=== PATIENT | male | born 1990 | race Hispanic/Latino ===

== ENCOUNTER 2025-02-11 15:18 | Emergency (ER) | payer SELFPAY ==
--- NOTE | ~2025-02-11 | XR_ITS ---
EXAMINATION: XR chest 1V portable DATE: 02/11/2025 22:06 INDICATION: Lightheadedness TECHNIQUE: frontal view of the chest was obtained. COMPARISON: None FINDINGS: The lungs are clear with no focal airspace opacities, pulmonary edema, pleural effusion or pneumothor ax. The cardiomediastinal silhouette is normal. Visualized bones and soft tissues are unremarkable. IMPRESSION: 1. No acute cardiopulmonary disease. Reviewed, dictated and finalized at location A.
[2025-02-11 15:20] VITALS: BP 118/75; PULSE 91; RESP 16; TEMP 36.4; O2SAT 99
--- NOTE | 2025-02-11 15:38 | ECG_ITS ---
Test Date: 2025-02-11 17:11:29 Measurements Intervals [place] Rate: 78 P: 37 NV: 158 QRS: 11 QRSD: 107 T: 9 QT: 371 QTc: 425 Interpretive Statements SINUS RHYTHM NONSPECIFIC ST & T-WAVE ABNORMALITY No previous ECG available for comparison Electronically Signed On 02-13-2025 15:33:19 CDT by Dilan Melton M.D.
--- NOTE | 2025-02-11 15:38 | ED.GENADULT ---
HPI - General Adult General Chief complaint: Environmental Exposure Stated complaint: heat exhaustion Time Seen by Provider: 02/11/25 15:30 Focused HPI: Patient is a 35-year-old male who presents to the ER with heat-related symptoms. He reports he was outside working on a roof all day. Patient reports he has been drinking water and Gatorade but when he got home he started experiencing significant dizziness and cramps. Patient denies any medical history relevant to this ER visit. He denies chest pain, shortness a breath, or urinary symptoms. GENERAL: Ill-appearing, well-nourished, and in acute distress d/t muscle cramps. HEAD: Normocephalic, atraumatic. CHEST: Clear to auscultation. ?No respiratory distress. HEART: Regular rate and rhythm.? NEURO: ?Alert and oriented x3. Patient screened in triage and initial orders placed.? ?Additional care and disposition to be based upon?diagnostic testing and treatment. Related Data Allergies Allergy/AdvReac Type Severity Reaction Status Date / Time No Known Allergies Allergy Verified 02/11/25 22:09 Course Vital Signs Vital signs: Vital Signs Temperature 36.4 C 02/11/25 15:20 Pulse Rate 91 02/11/25 15:20 Respiratory Rate 16 02/11/25 15:20 Blood Pressure 118/75 02/11/25 15:20 Pulse Oximetry 99 02/11/25 15:20 Oxygen Delivery Room Air 02/11/25 15:20 Temperature 36.3 C L 02/11/25 19:53 Pulse Rate 58 L 02/11/25 22:39 Respiratory Rate 20 02/11/25 19:53 Blood Pressure 108/73 02/11/25 19:53 Pulse Oximetry 100 02/11/25 19:53 Oxygen Delivery Room Air 02/11/25 15:20 Medical Decision Making Vital Signs Vital Signs: Vital Signs Temperature 36.4 C 02/11/25 15:20 Pulse Rate 91 02/11/25 15:20 Respiratory Rate 16 02/11/25 15:20 Blood Pressure 118/75 02/11/25 15:20 Pulse Oximetry 99 02/11/25 15:20 Oxygen Delivery Room Air 02/11/25 15:20 Temperature 36.3 C L 02/11/25 19:53 Pulse Rate 58 L 02/11/25 22:39 Respiratory Rate 20 02/11/25 19:53 Blood Pressure 108/73 02/11/25 19:53 Pulse Oximetry 100 02/11/25 19:53 Oxygen Delivery Room Air 02/11/25 15:20 Lab Data 02/11/25 17:14 02/12/25 00:05 Labs: Lab Results 02/11/25 02/11/25 02/12/25 Range/Units 17:14 22:50 00:05 WBC 10.1 H (4.5-10.0) K/mm3 RBC 5.22 (4.6-6.20) M/mm3 Hgb 15.7 (14.0-18.0) g/dL Hct 45.0 (42.0-52.0) % MCV 86.2 (80-100) fl MCH 30.1 (26-34) pg MCHC 34.9 (32-36) g/dl RDW 12.2 (11.5-14.5) % Plt Count 189 (150-375) k/mm3 MPV 11.1 H (7.4-10.4) fl Immature Gran % (Auto) 0.3 (0-0.5) % Neut % (Auto) 73.1 (45.5-73.1) % Lymph % (Auto) 15.6 L (18.3-44.2) % [place] % (Auto) 10.6 H (2.6-8.5) % Eos % (Auto) 0.1 (0-4.4) % Baso % (Auto) 0.3 (0.2-1.2) % Lymph # (Auto) 1.58 (0.9-3.2) K/mm3 [place] # (Auto) 1.1 H (0.1-0.6) K/mm3 Eos # (Auto) 0.0 (0-0.3) K/mm3 Baso # (Auto) 0.0 (0.0-0.1) K/mm3 Abs Immat Gran (auto) 0.03 (0.00-0.031) K/mm3 Absolute Neuts (auto) 7.4 H (1.3-6.7) K/mm3 Absolute Nucleated RBC 0.000 (0.0-0.012) K/mm3 Nucleated RBC % 0.0 (0.0-0.2) % Sodium 135 L 134 L (137-145) mmol/L Potassium 3.7 3.4 (3.4-5.0) mmol/L Chloride 97 L 98 (98-107) mmol/L Carbon Dioxide 24 28 (22-30) mmol/L Anion Gap 14 H 8 (4-12) mmol/L BUN 23 H 21 H (9-20) mg/dL Creatinine 1.46 H 1.02 (0.7-1.3) mg/dL Estim Creat Clear Calc Not Reportable Not Reportable Estimated GFR 54 L > 60 (59 - ) Glucose 99 95 (65-110) mg/dL Calcium 9.9 8.9 (8.4-10.2) mg/dL Magnesium 2.1 (1.6-2.3) mg/dL Total Bilirubin 1.0 (0.2-1.3) mg/dL AST 70 H (17-59) U/L ALT 103 H (6-50) U/L Alkaline Phosphatase 79 (38-126) U/L Total Creatine Kinase 264 H (55-170) U/L Troponin I < 0.012 (0.000-0.034) ng/mL Total Protein 9.2 H (6.3-8.2) g/dL Albumin 5.2 H (3.5-5.1) g/dL Urine Color Dark yellow (Yellow) Urine Appearance Cloudy H (Clear) Urine pH 5.0 (5.0-9.0) Ur Specific [place] 1.033 (1.001-1.035) Urine Protein 1+ H (Negative) mg/dL Urine Glucose (UA) Negative (Negative) mg/dL Urine Ketones Trace H (Negative) mg/dL Ur Blood (Man) Negative (Negative) Urine Nitrate Negative (Negative) Urine Bilirubin 2+ H (Negative) Urine Urobilinogen 1.0 (<2.0) mg/dL Add Ur Microanalysis Reviewed Leukocyte Esterase Rfl Trace H (Negative) VIK/UL Urine RBC 0-2 (0-2) /hpf Urine WBC 21-50 H (0-3) /hpf Ur Squamous Epith Cells Occasional (Few) /hpf Urine Bacteria Rare /hpf Urine Casts >20 Hyaline Casts Present (None) /lpf Urine Mucus Present /lpf C. trachomatis (PCR) Not detected (NOT DETECTE) N. gonorrhoeae (PCR) Not detected (NOT DETECTE) T. vaginalis (PCR) Not detected (NOT DETECTE) Discharge Plan Discharge Clinical Impression: Dehydration, CHONG (acute kidney injury), Abnormal urinalysis Patient Disposition: Home Condition: Stable Instructions: Antibiotic Form, Dehydration (DC), Heat Exhaustion (ED) Additional Instructions: Please make sure to drink plenty of fluids including water, Gatorade and Pedialyte. Follow-up closely with PCP I referred you to. Return to the emergency department if you develop a fever, you are unable to keep down food or fluids, or other concerning symptoms. Patient Language: Syriac Prescriptions: New ondansetron 4 mg tablet,disintegrating 4 mg PO Q8H Qty: 14 0RF Follow-up/Referrals: PHYSICIAN NOT ON STAFF,NONSTAFF [Primary Care Provider] - Lawrence Rollins MD [Physician] -
[2025-02-11 17:25] LABS: Hematocrit 45.0 % (42.0-52.0); Hemoglobin 15.7 g/dL (14.0-18.0); Immature Granulocyte Percent A 0.3 % (0-0.5); Lymphocytes Absolute Auto 1.58 K/mm3 (0.9-3.2); Mean Corpuscular HGB Conc 34.9 g/dl (32-36); Mean Corpuscular Hemoglobin 30.1 pg (26-34); Mean Corpuscular Volume 86.2 fl (80-100); Nucleated Red Blood Cells Absolute Auto 0.000 K/mm3 (0.0-0.012); Nucleated Red Blood Cells Perc 0.0 % (0.0-0.2); Platelet Count Result 189 k/mm3 (150-375); Red Blood Count 5.22 M/mm3 (4.6-6.20); White Blood Count 10.1 K/mm3 (4.5-10.0)
[2025-02-11 17:45] LABS: Alanine Aminotransferase 103 U/L (6-50); Albumin Level 5.2 g/dL (3.5-5.1); Alkaline Phosphatase 79 U/L (38-126); Anion Gap 14 mmol/L (4-12); Aspartate Amino Transferase 70 U/L (17-59); Bilirubin,Total 1.0 mg/dL (0.2-1.3); Blood Urea Nitrogen 23 mg/dL (9-20); Calcium 9.9 mg/dL (8.4-10.2); Carbon Dioxide 24 mmol/L (22-30); Chloride 97 mmol/L (98-107); Creatine Kinase 264 U/L (55-170); Estimated Glomerular Filt Rate 54; Glucose 99 mg/dL (65-110); Magnesium 2.1 mg/dL (1.6-2.3); Potassium 3.7 mmol/L (3.4-5.0); Sodium 135 mmol/L (137-145); Total Protein 9.2 g/dL (6.3-8.2)
[2025-02-11 19:53] VITALS: BP 108/73; PULSE 77; RESP 20; TEMP 36.3; O2SAT 100
--- NOTE | 2025-02-11 21:59 | ED_ITS ---
HPI - General Adult General Chief complaint: Environmental Exposure Stated complaint: heat exhaustion Time Seen by Provider: 02/11/25 15:30 History of Present Illness HPI narrative: 35-year-old male with no reported past medical history presents to the ED with concerns for dehydration and lightheadedness. 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 He states he drank water, Gatorade and apple juice today but has only urinated 1 time. He is concerned he is dehydrated. He endorses nausea but no vomiting. Also reporting muscle cramps. Denies chest pain, abdominal pain, cough or congestion, fever. Related Data Allergies Allergy/AdvReac Type Severity Reaction Status Date / Time No Known Allergies Allergy Verified 02/11/25 22:09 Review of Systems 2 Review of Systems: All systems reviewed & are unremarkable except as noted in HPI and below Exam 2 Narrative: GENERAL: Well-appearing, well-nourished, and in no acute distress. HEAD: Normocephalic, atraumatic. EYES: EOMI. ENT: Nares clear, no rhinorrhea or epistaxis. Mucous membranes moist. NECK: Supple. CHEST: Clear to auscultation. No respiratory distress. HEART: Regular rate and rhythm. No murmur heard. Normal peripheral pulses. ABDOMEN: Soft, nontender, nondistended, normal active bowel sounds. EXTREMITIES: Normal range of motion. No edema. SKIN: Warm, dry, no rash. NEURO: No focal deficits. Alert and oriented x3 Course Vital Signs Vital signs: Vital Signs Temperature 97.6 F 02/11/25 15:20 Pulse Rate 91 02/11/25 15:20 Respiratory Rate 16 02/11/25 15:20 Blood Pressure 118/75 02/11/25 15:20 Pulse Oximetry 99 02/11/25 15:20 Oxygen Delivery Room Air 02/11/25 15:20 Temperature 97.3 F L 02/11/25 19:53 Pulse Rate 58 L 02/11/25 22:39 Respiratory Rate 20 02/11/25 19:53 Blood Pressure 108/73 02/11/25 19:53 Pulse Oximetry 100 02/11/25 19:53 Oxygen Delivery Room Air 02/11/25 15:20 Medical Decision Making [facility] Narrative Medical decision making narrative: 35-year-old male with no reported past medical history presents to the emergency department for lightheadedness and dehydration 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 Triage vitals are stable. Patient is afebrile and nontoxic appearing. Exam is notable for the above. Lab work with mild leukocytosis of 10.1. Chemistries remarkable for hypochloremia of 97, BUN of 23 and CHONG with a creatinine of 1.46. CK mildly elevated at 264. Magnesium is normal at 2.1. Chest x-ray shows no acute cardiopulmonary disease. Troponin is undetectable. EKG showed normal sinus rhythm with rate of 78 bpm, normal SC interval, normal QRS duration, normal QTC, incomplete right bundle-branch block, nonspecific ST and T-wave abnormalities, no ST elevations or depressions. Urinalysis with trace ketonuria, trace leuk esterase and 21-50 white blood cells, greater than 20 casts and hyaline casts which may be due to dehydration. Patient denies signs or symptoms of UTI, concern for STIs, penile discharge or scrotal/testicular pain. He would like to wait for urine culture results prior to treatment. Will also send STI testing. Patient updated on results. He received 2 L of fluids and Flexeril with significant improvement in symptoms. Repeat BMP shows normal creatinine of 1.02 and improvement in BUN to 21. States his symptoms have resolved. Encouraged increased fluid intake able provide a work note to excuse patient from work tomorrow to rehydrate and rest. Advised follow-up with PCP. Discussed strict ED return precautions. Patient is agreeable with the plan verbalized understanding. Discharged in stable condition. Vital Signs Vital Signs: Vital Signs Temperature 97.6 F 02/11/25 15:20 Pulse Rate 91 02/11/25 15:20 Respiratory Rate 16 02/11/25 15:20 Blood Pressure 118/75 02/11/25 15:20 Pulse Oximetry 99 02/11/25 15:20 Oxygen Delivery Room Air 02/11/25 15:20 Temperature 97.3 F L 02/11/25 19:53 Pulse Rate 58 L 02/11/25 22:39 Respiratory Rate 20 02/11/25 19:53 Blood Pressure 108/73 02/11/25 19:53 Pulse Oximetry 100 02/11/25 19:53 Oxygen Delivery Room Air 02/11/25 15:20 Lab Data 02/11/25 17:14 02/12/25 00:05 Labs: Lab Results 02/11/25 02/11/25 02/12/25 Range/Units 17:14 22:50 00:05 WBC 10.1 H (4.5-10.0) K/mm3 RBC 5.22 (4.6-6.20) M/mm3 Hgb 15.7 (14.0-18.0) g/dL Hct 45.0 (42.0-52.0) % MCV 86.2 (80-100) fl MCH 30.1 (26-34) pg MCHC 34.9 (32-36) g/dl RDW 12.2 (11.5-14.5) % Plt Count 189 (150-375) k/mm3 MPV 11.1 H (7.4-10.4) fl Immature Gran % (Auto) 0.3 (0-0.5) % Neut % (Auto) 73.1 (45.5-73.1) % Lymph % (Auto) 15.6 L (18.3-44.2) % [place] % (Auto) 10.6 H (2.6-8.5) % Eos % (Auto) 0.1 (0-4.4) % Baso % (Auto) 0.3 (0.2-1.2) % Lymph # (Auto) 1.58 (0.9-3.2) K/mm3 [place] # (Auto) 1.1 H (0.1-0.6) K/mm3 Eos # (Auto) 0.0 (0-0.3) K/mm3 Baso # (Auto) 0.0 (0.0-0.1) K/mm3 Abs Immat Gran (auto) 0.03 (0.00-0.031) K/mm3 Absolute Neuts (auto) 7.4 H (1.3-6.7) K/mm3 Absolute Nucleated RBC 0.000 (0.0-0.012) K/mm3 Nucleated RBC % 0.0 (0.0-0.2) % Sodium 135 L 134 L (137-145) mmol/L Potassium 3.7 3.4 (3.4-5.0) mmol/L Chloride 97 L 98 (98-107) mmol/L Carbon Dioxide 24 28 (22-30) mmol/L Anion Gap 14 H 8 (4-12) mmol/L BUN 23 H 21 H (9-20) mg/dL Creatinine 1.46 H 1.02 (0.7-1.3) mg/dL Estim Creat Clear Calc Not Reportable Not Reportable Estimated GFR 54 L > 60 (59 - ) Glucose 99 95 (65-110) mg/dL Calcium 9.9 8.9 (8.4-10.2) mg/dL Magnesium 2.1 (1.6-2.3) mg/dL Total Bilirubin 1.0 (0.2-1.3) mg/dL AST 70 H (17-59) U/L ALT 103 H (6-50) U/L Alkaline Phosphatase 79 (38-126) U/L Total Creatine Kinase 264 H (55-170) U/L Troponin I < 0.012 (0.000-0.034) ng/mL Total Protein 9.2 H (6.3-8.2) g/dL Albumin 5.2 H (3.5-5.1) g/dL Urine Color Dark yellow (Yellow) Urine Appearance Cloudy H (Clear) Urine pH 5.0 (5.0-9.0) Ur Specific [place] 1.033 (1.001-1.035) Urine Protein 1+ H (Negative) mg/dL Urine Glucose (UA) Negative (Negative) mg/dL Urine Ketones Trace H (Negative) mg/dL Ur Blood (Man) Negative (Negative) Urine Nitrate Negative (Negative) Urine Bilirubin 2+ H (Negative) Urine Urobilinogen 1.0 (<2.0) mg/dL Add Ur Microanalysis Reviewed Leukocyte Esterase Rfl Trace H (Negative) VIK/UL Urine RBC 0-2 (0-2) /hpf Urine WBC 21-50 H (0-3) /hpf Ur Squamous Epith Cells Occasional (Few) /hpf Urine Bacteria Rare /hpf Urine Casts >20 Hyaline Casts Present (None) /lpf Urine Mucus Present /lpf Discharge Plan Discharge Clinical Impression: Dehydration, CHONG (acute kidney injury), Abnormal urinalysis Patient Disposition: Home Condition: Stable Instructions: Antibiotic Form, Dehydration (DC), Heat Exhaustion (ED) Additional Instructions: Please make sure to drink plenty of fluids including water, Gatorade and Pedialyte. Follow-up closely with PCP I referred you to. Return to the emergency department if you develop a fever, you are unable to keep down food or fluids, or other concerning symptoms. Patient Language: Croatian Prescriptions: New ondansetron 4 mg tablet,disintegrating 4 mg PO Q8H Qty: 14 0RF Follow-up/Referrals: PHYSICIAN NOT ON STAFF,NONSTAFF [Primary Care Provider] - Lawrence Rollins MD [Physician] -
[2025-02-11] MEDS: LACTATED RINGERS 1,000 ML 999 ML IV CONT ×2 (22:09→22:10)
[2025-02-11] MEDS: CYCLOBENZAPRINE HCL 10 MG TABLET PO (22:20)
[2025-02-11 22:39] VITALS: PULSE 58
[2025-02-11 22:57] LABS: Troponin I < 0.012 ng/mL (0.000-0.034)
[2025-02-11 23:11] LABS: Add Urine Microscopic? YES; Appearance Urine Cloudy (Clear); Glucose Urine UA Negative (Negative); Leukocyte Esterase Ur Trace LEU/UL (Negative); Need Manual Microscopic Reviewed; Nitrate Urine Negative (Negative); Non Pathogenic Casts >20; Specific Grav Ur 1.033 (1.001-1.035)
[2025-02-12 00:37] LABS: Anion Gap 8 mmol/L (4-12); Blood Urea Nitrogen 21 mg/dL (9-20); Calcium 8.9 mg/dL (8.4-10.2); Carbon Dioxide 28 mmol/L (22-30); Chloride 98 mmol/L (98-107); Estimated Glomerular Filt Rate > 60; Glucose 95 mg/dL (65-110); Potassium 3.4 mmol/L (3.4-5.0); Sodium 134 mmol/L (137-145)
[2025-02-12 02:08] LABS: Trichomonas Vag PCR NOT DETECTED (NOT DETECTE)
== END 2025-02-12 01:38 | disposition home or self-care (01) ==
PROVIDERS: Registered Nurse; Emergency Provider Physician Assistant
DX: N17.9 Acute kidney failure, unspecified (principal); E86.0 Dehydration; R82.998 Other abnormal findings in urine; R94.31 Abnormal electrocardiogram [ECG] [EKG]
CPT/HCPCS: 36415; 71045; 80048; 80053; 81001; 82550; 83735; 84484; 85025; 87086; 87491; 87591; 87661; 93005; 96360; 99284; A9270; J7120